=== PATIENT | male | born 1965 | race Caucasian/White ===

== ENCOUNTER 2019-11-08 15:10 | Emergency (ER) | payer SELFPAY ==
[~2019-11-08] VITALS: Ht 160 cm; Wt 60.0 kg
[2019-11-08] MEDS ORDERED: FLUORESCEIN SODIUM 1MG/STRIP LEFTEYE ONE (17:15)
[2019-11-08] MEDS ORDERED: TETRACAINE 0.5% OPHTH DROPS 4ML LEFTEYE ONE (17:15)
[2019-11-08 18:00] VITALS: BP 106/74
== END 2019-11-08 18:01 | disposition home or self-care (01) ==
LOC: ER 15:10
DX: H57.12 Ocular pain, left eye (principal); T15.92XA Foreign body on external eye, part unspecified, left eye, initial encounter; X58.XXXA Exposure to other specified factors, initial encounter; Y93.9 Activity, unspecified; Y92.9 Unspecified place or not applicable
CPT/HCPCS: 99283

== ENCOUNTER 2025-06-08 18:26 | Emergency (ER) | payer SELFPAY ==
[~2025-06-08] VITALS: Ht 162.6 cm; Wt 68.0 kg
[2025-06-08 18:29] VITALS: O2SAT 98
[2025-06-08] MEDS: BACITRACIN ZINC OINT UDPKT TOP ONE (22:54)
[2025-06-08] MEDS: LIDOCAINE HCL 1% 20ML VIAL INFIL ONE (22:54)
[2025-06-08] MEDS: TETANUS, DIPHTHERIA, PERTUSSIS VAC/PF 0.5ML (>10YR OLD) IM ONE (22:55)
[2025-06-08 23:36] VITALS: TEMP 36.8
[2025-06-09] MEDS ORDERED: BO1 TP (00:47)
[2025-06-09] MEDS ORDERED: CEPH500C2 MT (00:47)
[2025-06-09] MEDS: ACETAMINOPHEN 325MG TABLET PO ONE (00:57)
[2025-06-09 01:08] VITALS: BP 137/96; PULSE 77; RESP 15; O2SAT 95
== END 2025-06-09 01:08 | disposition home or self-care (01) ==
LOC: ER 18:26
DX: S61.212A Laceration without foreign body of right middle finger without damage to nail, initial encounter (principal); X58.XXXA Exposure to other specified factors, initial encounter; Y93.89 Activity, other specified; Y92.89 Other specified places as the place of occurrence of the external cause; Y99.8 Other external cause status
CPT/HCPCS: 90715; 12002; 90471; 99283; J2003; Z7610

== ENCOUNTER 2025-06-21 15:47 | Emergency (ER) | payer SELFPAY ==
[~2025-06-21] VITALS: Ht 165.1 cm; Wt 65.0 kg
[~2025-06-21 15:47] MED LIST: BO1 TP; CEPH500C2 MT
[2025-06-21 15:50] VITALS: O2SAT 98
[2025-06-21 15:58] VITALS: BP 148/87; PULSE 86; RESP 16; TEMP 36.7; O2SAT 100
== END 2025-06-21 17:05 | disposition home or self-care (01) ==
LOC: ER 15:47
DX: S61.212D Laceration without foreign body of right middle finger without damage to nail, subsequent encounter (principal); X58.XXXD Exposure to other specified factors, subsequent encounter; Z48.02 Encounter for removal of sutures
CPT/HCPCS: 99281